=== PATIENT | male | born 1985 | race African-American/Black ===

== ENCOUNTER 2017-01-15 06:41 | Emergency (ER) | payer SELFPAY ==
[~2017-01-15] VITALS: Ht 170.2 cm; Wt 73.0 kg
[2017-01-15] MEDS ORDERED: KETOROLAC 30MG/ML VIAL IM ONE (07:30)
[2017-01-15 08:00] VITALS: BP 140/74
== END 2017-01-15 08:07 | disposition home or self-care (01) ==
LOC: ER 07:28
DX: L03.011 Cellulitis of right finger (principal); J40 Bronchitis, not specified as acute or chronic; F12.90 Cannabis use, unspecified, uncomplicated
CPT/HCPCS: 96372; 99283; J1885

== ENCOUNTER 2018-07-21 19:25 | Emergency (ER) | payer MEDICAID ==
[~2018-07-21] VITALS: Ht 170.2 cm; Wt 86.5 kg
[2018-07-21 21:08] VITALS: BP 118/89
== END 2018-07-21 21:08 | disposition home or self-care (01) ==
LOC: ER 19:43
DX: L03.012 Cellulitis of left finger (principal); F12.10 Cannabis abuse, uncomplicated; Z87.891 Personal history of nicotine dependence
CPT/HCPCS: 99283

== ENCOUNTER 2018-08-05 13:48 | Emergency (ER) | payer MEDICAID ==
[~2018-08-05] VITALS: Ht 170.2 cm; Wt 84.0 kg
[2018-08-05] MEDS ORDERED: IBUPROFEN 800MG TABLET PO ONE (16:45)
[2018-08-05 17:03] VITALS: BP 144/87
== END 2018-08-05 17:11 | disposition home or self-care (01) ==
LOC: ER 13:48
DX: L03.012 Cellulitis of left finger (principal); F12.10 Cannabis abuse, uncomplicated
CPT/HCPCS: 99282

== ENCOUNTER 2019-05-28 11:19 | Emergency (ER) | payer MEDICAID ==
[~2019-05-28] VITALS: Ht 172.7 cm; Wt 90.0 kg
[2019-05-28] MEDS ORDERED: KETOROLAC 30MG/ML VIAL IV STA (14:56)
[2019-05-28] MEDS ORDERED: ONDANSETRON HCL 4MG/2ML INJ IV STA (14:56)
[2019-05-28] MEDS ORDERED: SODIUM CHLORIDE 0.9% 1,000 ML IV ONE (14:56)
[2019-05-28] MEDS ORDERED: LOPERAMIDE 2 MG/10 ML UDC PO ONE (15:00)
[2019-05-28 15:39] LABS: CHLORIDE 105 mEq/L (98-107)
[2019-05-28 15:40] LABS: BASOPHILS % 0.4 % (0.0-2.0); EOSINOPHILS % 0.1 % (0.0-5.0); HEMATOCRIT. 40.4 % (42.0-52.0); HEMOGLOBIN. 13.7 g/dL (14.0-18.0); INR 1.1; LYMPHOCYTES % 16.9 % (20.0-50.0); MEAN CORPUSCULAR HEMOGLOBIN 30.6 pg (28.0-32.0); MEAN PLATELET VOLUME 8.1 fl (7.4-10.4); MONOCYTES % 6.3 % (2.0-8.0); NEUTROPHILS % 76.3 % (40.0-76.0); PLATELET 245 x1000/uL (130-400); PROTHROMBIN TIME 11.3 sec (9.6-11.0); RED BLOOD CELL COUNT 4.49 mill/uL (4.7-6.1); RED CELL DISTRIBUTION WIDTH 13.5 % (11.6-14.6)
[2019-05-28 16:23] VITALS: BP 139/81
== END 2019-05-28 16:35 | disposition home or self-care (01) ==
LOC: ER 11:19
DX: R19.7 Diarrhea, unspecified (principal); F12.10 Cannabis abuse, uncomplicated; Z87.891 Personal history of nicotine dependence
CPT/HCPCS: 36415; 80053; 83690; 85025; 85610; 96361; 96374; 96375; 99283; J1885; J2405; J7030

== ENCOUNTER 2025-10-01 17:29 | Emergency (ER) | payer SELFPAY ==
[~2025-10-01] VITALS: Ht 170.2 cm; Wt 90.0 kg
[2025-10-01 17:34] VITALS: O2SAT 99
[2025-10-01 17:52] VITALS: TEMP 36.7; O2SAT 100
[2025-10-01 18:15] VITALS: BP 167/74; PULSE 64; RESP 16
[2025-10-01] MEDS: KETOROLAC 30MG/ML VIAL IM ONE (18:15)
[2025-10-01] MEDS ORDERED: ACET-2708 MT (18:38)
[2025-10-01] MEDS ORDERED: IBUP-1455 MT (18:38)
== END 2025-10-01 19:06 | disposition home or self-care (01) ==
LOC: ER 17:29
DX: S62.390A Other fracture of second metacarpal bone, right hand, initial encounter for closed fracture (principal); S62.331A Displaced fracture of neck of second metacarpal bone, left hand, initial encounter for closed fracture; F12.90 Cannabis use, unspecified, uncomplicated; X58.XXXA Exposure to other specified factors, initial encounter; Y93.89 Activity, other specified; Y92.89 Other specified places as the place of occurrence of the external cause; Y99.8 Other external cause status
CPT/HCPCS: 99283; 73130; 29125; 96372; J1885